=== PATIENT | male | born 1955 | race Caucasian/White ===

== ENCOUNTER 2022-12-26 13:40 | Inpatient (IN) | payer OTHER ==
[~2022-12-26] VITALS: Ht 170.2 cm; Wt 75.0 kg
[2022-12-26 14:52] LABS: BASOPHILS ABSOLUTE AUTO 0.08 K/mm3 (0.00-0.23); BASOPHILS PERCENT AUTO 1 % (0-2); EOSINOPHILS ABSOLUTE AUTO 0.07 K/mm3 (0.00-0.68); EOSINOPHILS PERCENT AUTO 1 % (0-6); Hematocrit 48.4 % (37.0-53.0); IMMATURE GRAN ABSOLUTE AUTO 0.03 K/mm3 (0.00-0.10); IMMATURE GRAN PERCENT AUTO 0 % (0-1); LYMPHOCYTES ABSOLUTE AUTO 2.02 K/mm3 (0.84-5.20); LYMPHOCYTES PERCENT AUTO 25 % (21-46); MONOCYTES PERCENT AUTO 13 % (4-13); Mean Corpuscular HGB 34.7 pg (26.0-34.0); Mean Corpuscular HGB Conc 35.1 g/dL (31.5-36.5); Mean Corpuscular Volume 99 fL (80-100); NEUTROPHILS ABSOLUTE AUTO 4.75 K/mm3 (1.96-9.15); NEUTROPHILS PERCENT AUTO 60 % (41-73); Platelet Count 245 K/mm3 (150-400); RDW Coefficient Variation 12.5 % (11.7-14.2); RDW Standard Deviation 45.7 fL (35.1-46.3); White Blood Cell Count 7.95 K/mm3 (4.00-11.30)
[2022-12-26 15:08] LABS: Thyroid Stimulating Hormone 1.25 uIU/mL (0.360-4.800)
[2022-12-26 15:09] LABS: Albumin/Globulin Ratio 0.6 (0.8-1.8); Bilirubin, Total 0.7 mg/dL (0.1-1.0); Bun/Creatinine Ratio 21.7 (12.0-20.0); Calcium, Blood 8.8 mg/dL (8.5-10.1); Creatinine, Blood 0.65 mg/dL (0.60-1.20); Globulin, Blood 5.1 g/dL (2.2-4.0); Potassium, Blood 4.2 mmol/L (3.5-5.5); Total Protein, Blood 8.1 g/dL (6.4-8.2)
[2022-12-26 15:11] LABS: International Normalized Ratio 1.1; Prothrombin Time Results 11.5 Sec (9.7-11.5)
[2022-12-26] MEDS ORDERED: LOSARTAN POTASS25 M2 PO (15:28)
[2022-12-26] MEDS ORDERED: VARENICLINE TART1 M2 PO (15:28)
[2022-12-26] MEDS ORDERED: METO50ER PO (15:29)
[2022-12-26] MEDS ORDERED: PLAVIX75 MG PO (15:30)
[2022-12-26] MEDS ORDERED: TRELEGY ELLIPT1 EACH INH (15:30)
[2022-12-26] MEDS ORDERED: NITR.4SL SL (15:31)
[2022-12-26] MEDS ORDERED: Aspir 8181 MG PO (15:31)
[2022-12-27 04:08] LABS: Albumin, Blood 2.6 g/dL (3.4-5.0); Albumin/Globulin Ratio 0.6 (0.8-1.8); Bilirubin, Total 0.6 mg/dL (0.1-1.0); Bun/Creatinine Ratio 23.6 (12.0-20.0); Calcium, Blood 8.2 mg/dL (8.5-10.1); Creatinine, Blood 0.76 mg/dL (0.60-1.20); Globulin, Blood 4.5 g/dL (2.2-4.0); Potassium, Blood 3.7 mmol/L (3.5-5.5); Total Protein, Blood 7.1 g/dL (6.4-8.2)
--- NOTE | 2022-12-27 05:56 | NUR ---
PT CARDIZEM GTT OFF SINCE 2299 FOR HYPOTENSION AND PAUSES UP TO 2 SECONDS AND RATES DIPPING INTO THE 40'S, AFIB RATE CONTROLLED IN 60'S AND 70'S, B/P RECOVERED QUICKLY AFTER CARDIZEM TURNED OFF, 1 BM, GOOD UO, NO CHEST PAIN OR SOB, PT UP INDEPENDENTLY TO BSC AND TO USE URINAL, WILL CONTINUE TO MONITOR UNTIL SHIFT CHANGE
--- NOTE | 2022-12-27 10:09 | NUR ---
AM NOTE: PATIENT ALERT AND ORIENTED X4. AT TIMES SEEMS A LITTLE FORGETFUL. PERRLA. DENIES NUMBNESS/TINGLING. ON ROOM AIR, LUNGS SOUNDING CLEAR. TELE SHOWING AFIB WITH HR 80-90'S AT REST AND UP TO 130'S WITH ACTIVITY. DENIES CHEST PAIN/PRESSURE/PALPITATIONS. BP STABLE. ECHO ORDERS IN PLACE. SPOKE WITH DR. BLANKENSHIP AND DR. SALDAÑA THIS AM. PATIENT RESTARTED ON HOME PO METOPROLOL. PLAN TO START A ANTICOAG. EATING WNL. DENIES ABDOMINAL PAIN/NAUSEA. VOIDING WNL. CALL LIGHT IN REACH. PATIENT STATE HE HAS LOST HIS CELLPHONE. MULTIPLE STAFF TO LOOK THROUGHOUT ROOM AND BELONGINGS WITH PATIENT PERMISSION. CALLS PLACED TO ED, SECURITY, AND MAINTANENCE. CALL LIGHT IN REACH.
--- NOTE | 2022-12-27 12:41 | NUR ---
ECHO COMPLETED AT THIS TIME
--- NOTE | 2022-12-27 13:34 | NUR ---
PATIENT UP FOR WALK AROUND UNIT WITH RN. TELE MONITOR NOTIFIED. HR UP TO 130'S WHEN WALKING. BACK IN BED RESTING AT THIS TIME AND HR 80-90'S. PATIENT DENIES CHEST PAIN/PALPITATION/PRESSURE WHEN UP WALKING. SOME SHORTNESS OF BREATH. DENIES DIZZINESS. WILL CONTINUE TO MONITOR.
--- NOTE | 2022-12-27 18:10 | NUR ---
SHIFT SUMMARY: PATIENT REMAINS STABLE. HR 80-90'S AT REST. WHEN UP TO BATHROOM OR WALKING AROUND 110-120'S. CONTINUES TO DENY CHEST PAIN/PRESSURE/PALPITATIONS. ON ROOM AIR. UP TO BATHROOM IND. WALKED AROUND NURSE STATION UNIT X2 THIS SHIFT. DENIES OVERALL PAIN. EATING DINNER AT THIS TIME. WILL CONTINUE TO MONITOR AND REPORT OFF TO ONCOMING RN.
--- NOTE | 2022-12-28 03:20 | NUR ---
NOTIFIED BY CORPORATE GIVING MANAGER THAT PT'S HR WAS AVERAGING 140'S, PT ASLEEP IN BED, B'P 108/85, 94% ON RA, DR GUZMAN NOTIFIED AND ORDERS FOR METOPROLOL 5MG IV X'S 1 RECIEVED, WHILE WAITING ON VERIFICATION FROM PHARMACY PT LISSA RN TO ROOM STATING, "IT'S HAPPENING AGAIN" C/O SOB AND IS SITTING UP IN BED DIAPHORETIC AND ANXIOUS, STATES "HEART IS RACING AND I HAVE A HEADACHE JUST LIKE AT HOME", PT GIVEN METOPROLOL, WILL CONTINUE TO MONITOR
--- NOTE | 2022-12-28 06:22 | NUR ---
PT AFIB 80'S-120'S, DILT GTT ON HOLD FOR NOW, CIWA PROTOCOL INITIATED, PT STATED HE DRINKS A SIX PACK OF BEER A DAY AND LAST DRINK WAS 4 DAYS AGO WHICH MAKES IT THE 25TH, CURRENT CIWA IS AN 8, REFUSES TYLENOL FOR MALIK AND CURRENTLY PT IS RESTLESS BUT LAYING IN BED, VSS
--- NOTE | 2022-12-28 10:18 | NUR ---
AM NOTE: PATIENT ALERT AND ORIENTED X4. NEURO WNL, AND AT PATIENT BASELINE. UP TO BATHROOM IND. ON ROOM AIR SATING ABOVE 95%. BREATHING TREATMENTS PER RESP. BP STABLE. NO TEMP. TELE SHOWING AFIB. HR 80-90'S AT REST. UP TO 130'S WHEN UP TALKING, WALKING, AND EATING. DOES NOT SUSTAIN IN 130'S. SEE TELE EVENTS. PO METOPROLOL GIVEN THIS AM WITH ADDITIONAL 25 MG METOPROLOL SUCCINATE PER DR. BLANKENSHIP. HR 70-100 AT THIS TIME, PATIENT SLEEPING. NO SIGNS OF EDEMA. DENIES PAIN. PLAN TO CONTINUE TO WATCH TELE AND UPDATE DR. BLANKENSHIP AND DR. CRAIN. CALL LIGHT IN REACH.
[2022-12-28] MEDS ORDERED: ELIQUIS5 M2 PO (11:54)
[2022-12-28] MEDS ORDERED: FOLI1 PO (11:54)
[2022-12-28] MEDS ORDERED: Ventolin/Prove6.7 GM INH (11:55)
[2022-12-28] MEDS ORDERED: B-1100 M1 PO (11:56)
--- NOTE | 2022-12-28 14:13 | NUR ---
DISCHARGE: NO ACUTE CHANGES, HR 80-90'S. PATIENT EDUCATED ON DISCHARGE INSTRUCTIONS, NEW MEDICATIONS, F/U APPOINTMENTS, AND TO SPORTS PHYSIOLOGIST MEDICATIONS FROM [facility]. VITAL SIGNS WNL. BROTHER IN TO PICK PATIENT UP. PATIENT LEFT UNIT VIA WHEELCHAIR WITH ALL PERSONAL BELONGINGS. IV REMOVED WNL.
== END 2022-12-28 13:28 | disposition home or self-care (01) | DRG 309 ==
LOC: ER 13:40 → PCU 20:15
PROVIDERS: Student in an Organized Health Care Education/Training Program; ADMIT Hospitalist
DX: I48.91 Unspecified atrial fibrillation (principal); E87.1 Hypo-osmolality and hyponatremia; J44.9 Chronic obstructive pulmonary disease, unspecified; I25.10 Atherosclerotic heart disease of native coronary artery without angina pectoris; R74.01 Elevation of levels of liver transaminase levels; I10 Essential (primary) hypertension; I73.9 Peripheral vascular disease, unspecified; F10.10 Alcohol abuse, uncomplicated; F17.210 Nicotine dependence, cigarettes, uncomplicated; I25.2 Old myocardial infarction; Z86.73 Personal history of transient ischemic attack (TIA), and cerebral infarction without residual deficits; Z95.5 Presence of coronary angioplasty implant and graft; Z96.652 Presence of left artificial knee joint; Z98.890 Other specified postprocedural states; Z95.828 Presence of other vascular implants and grafts; Z79.82 Long term (current) use of aspirin; Z79.899 Other long term (current) drug therapy; Z79.52 Long term (current) use of systemic steroids
CPT/HCPCS: 36415; 71045; 80053; 83735; 83880; 84443; 84484; 85025; 85610; 93005; 93010; 93306; 94640; 94664; 94760; 94762; 96365; 96376; 99285-25; A9270; J1650; J2270; J7040

== ENCOUNTER → 2023-01-21 | Outpatient (CLI) | payer OTHER ==
[~2023-01-21] MED LIST: Aspir 8181 MG PO; B-1100 M1 PO; ELIQUIS5 M2 PO; FOLI1 PO; LOSARTAN POTASS25 M2 PO; METO50ER PO; NITR.4SL SL; PLAVIX75 MG PO; TRELEGY ELLIPT1 EACH INH; VARENICLINE TART1 M2 PO; Ventolin/Prove6.7 GM INH
== END | disposition home or self-care (01) ==
LOC: PLD 12:37 → LAB SHORT 12:37
DX: H02.821 Cysts of right upper eyelid (principal)
CPT/HCPCS: 88304

== ENCOUNTER 2023-10-29 18:48 | Observation (INO) | payer OTHER ==
[~2023-10-29] VITALS: Ht 170.2 cm; Wt 73.8 kg
[2023-10-29] MEDS ORDERED: ATOR40TA PO (19:17)
[2023-10-29 19:21] LABS: BASOPHILS ABSOLUTE AUTO 0.07 K/mm3 (0.00-0.23); BASOPHILS PERCENT AUTO 1 % (0-2); EOSINOPHILS PERCENT AUTO 3 % (0-6); Hematocrit 43.2 % (37.0-53.0); IMMATURE GRAN ABSOLUTE AUTO 0.04 K/mm3 (0.00-0.10); IMMATURE GRAN PERCENT AUTO 0 % (0-1); LYMPHOCYTES ABSOLUTE AUTO 1.82 K/mm3 (0.84-5.20); LYMPHOCYTES PERCENT AUTO 18 % (21-46); MONOCYTES ABSOLUTE AUTO 1.22 K/mm3 (0.16-1.47); MONOCYTES PERCENT AUTO 12 % (4-13); Mean Corpuscular HGB 35.5 pg (26.0-34.0); Mean Corpuscular HGB Conc 34.7 g/dL (31.5-36.5); Mean Corpuscular Volume 102 fL (80-100); Mean Platelet Volume 9.7 fL (9.1-12.4); NEUTROPHILS ABSOLUTE AUTO 6.72 K/mm3 (1.96-9.15); NEUTROPHILS PERCENT AUTO 66 % (41-73); Platelet Count 239 K/mm3 (150-400); RDW Coefficient Variation 11.7 % (11.7-14.2); RDW Standard Deviation 44.1 fL (35.1-46.3); Red Blood Cell Count 4.23 M/mm3 (4.30-5.90); White Blood Cell Count 10.17 K/mm3 (4.00-11.30)
[2023-10-29 19:43] LABS: Albumin, Blood 2.5 g/dL (3.4-5.0); Albumin/Globulin Ratio 0.5 (0.8-1.8); Bilirubin, Total 0.5 mg/dL (0.1-1.0); Bun/Creatinine Ratio 21.5 (12.0-20.0); Calcium, Blood 8.6 mg/dL (8.5-10.1); Creatinine, Blood 0.61 mg/dL (0.60-1.20); Globulin, Blood 4.8 g/dL (2.2-4.0); Potassium, Blood 3.6 mmol/L (3.5-5.5); Total Protein, Blood 7.3 g/dL (6.4-8.2)
[2023-10-29 20:21] LABS: Source, Urine Voided
[2023-10-29 20:24] LABS: Appearance, Urine Hazy (Clear); Bilirubin, Urine Neg (Neg); Blood, Urine 1+ (Neg); Color, Urine Yellow (P-Yellow); Glucose Qualitative, Urine Neg (Neg); Ketones, Urine Neg (Neg); Leukocyte Esterase, Urine 2+ (Neg); Nitrite, Urine Neg (Neg); Protein, Urine Neg (Neg); Specific Gravity, Urine 1.015 (1.003-1.022); Urobilinogen, Urine 1+ (Normal)
[2023-10-29 20:51] LABS: Magnesium, Blood 1.8 mg/dL (1.6-2.4)
[2023-10-29 21:18] LABS: Bacteria Many /hpf; Red Blood Cells, Urine 0-2 /hpf (0-2); Squamous Epithelial Cells Not Seen /hpf (Few); White Blood Cells, Urine 25-50 /hpf (0-5)
[2023-10-29] MEDS ORDERED: CEFU500T30 PO (22:56)
[2023-10-30 00:31] VITALS: BP 103/71
[2023-10-30 00:58] LABS: BASOPHILS ABSOLUTE AUTO 0.09 K/mm3 (0.00-0.23); BASOPHILS PERCENT AUTO 1 % (0-2); EOSINOPHILS ABSOLUTE AUTO 0.31 K/mm3 (0.00-0.68); EOSINOPHILS PERCENT AUTO 3 % (0-6); Hematocrit 42.8 % (37.0-53.0); Hemoglobin 14.9 g/dL (13.5-17.5); IMMATURE GRAN ABSOLUTE AUTO 0.06 K/mm3 (0.00-0.10); IMMATURE GRAN PERCENT AUTO 1 % (0-1); LYMPHOCYTES PERCENT AUTO 24 % (21-46); MONOCYTES PERCENT AUTO 12 % (4-13); Mean Corpuscular HGB 35.1 pg (26.0-34.0); Mean Corpuscular HGB Conc 34.8 g/dL (31.5-36.5); Mean Corpuscular Volume 101 fL (80-100); Mean Platelet Volume 9.9 fL (9.1-12.4); NEUTROPHILS ABSOLUTE AUTO 5.69 K/mm3 (1.96-9.15); NEUTROPHILS PERCENT AUTO 60 % (41-73); Platelet Count 232 K/mm3 (150-400); RDW Coefficient Variation 11.8 % (11.7-14.2); RDW Standard Deviation 43.5 fL (35.1-46.3); Red Blood Cell Count 4.24 M/mm3 (4.30-5.90); White Blood Cell Count 9.55 K/mm3 (4.00-11.30)
[2023-10-30 01:27] LABS: Albumin, Blood 2.5 g/dL (3.4-5.0); Albumin/Globulin Ratio 0.5 (0.8-1.8); Bilirubin, Total 0.4 mg/dL (0.1-1.0); Bun/Creatinine Ratio 21.7 (12.0-20.0); Calcium, Blood 8.2 mg/dL (8.5-10.1); Creatinine, Blood 0.55 mg/dL (0.60-1.20); Globulin, Blood 4.7 g/dL (2.2-4.0); Potassium, Blood 4.4 mmol/L (3.5-5.5); Total Protein, Blood 7.2 g/dL (6.4-8.2)
--- NOTE | 2023-10-30 03:50 | NUR ---
LATE NOTE. PT ARRIVED ON UNIT AT 0030. AOX4, PLEASANT, COOPERATIVE WITH CARE. STEADY/STRONG GAIT. PT REPORTED MILD DIZZINESS UPON TRANSFER ON ARRIVAL. SBA TRANSFER FOR TIME BEING, EDUCATED CLINICAL DATA ASSOCIATE LIGHT USE TO WHICH PT HAS BEEN COOPERATIVE THUS FAR. SCDs IN PLACE. SATTING WELL ON ROOM AIR. PT DENIED ANY CHEST PAIN OR PRESSURE AT TIME OF ADMISSION ASSESSMENT. ADMISSION PROCESS COMPLETED PER PROTOCOL. EDUCATED ON FIRE SAFETY. PT HAS BEEN RESTING COMFORTABLY IN BED SINCE ARRIVAL. CALLS APPROPRIATELY. BED LOCKED IN LOWEST POSITION. CALL LIGHT LEFT WITHIN REACH.
[2023-10-30 04:24] VITALS: BP 100/63
--- NOTE | 2023-10-30 04:40 | NUR ---
SHIFT SUMMARY. SHIFT MOSTLY UNREMARKABLE SINCE PT ARRIVED ON UNIT. RESTING COMFORTABLY IN BED. TELE ON WITH NO EVENTS THUS FAR. AFIB RUNNING 50s-60s WHILE SLEEPING AND HR ESCALATES UP TO 100s WITH TRANSFER. CONTINUES TO DENY PAIN. SEIZURE PADS IN PLACE. SCDs IN PLACE. CALLS APPROPRIATELY FOR ASSISTANCE. FLUIDS INFUSING. BED LOCKED IN LOWEST POSITION. CALL LIGHT LEFT WITHINR EACH.
[2023-10-30 07:38] VITALS: BP 129/81
[2023-10-30 11:31] VITALS: BP 118/74
[2023-10-30] MEDS ORDERED: CEFU250T47 PO (12:47)
[2023-10-30] MEDS ORDERED: METO25ER PO (12:48)
--- NOTE | 2023-10-30 14:29 | NUR ---
DISCHARGE HOME PT A&O X4. VSS. SPO2 > 92% ON RA. MONITOR SHOWING AFIB, HR 60s-90s AT REST & HR BRIEFLY UP TO 120s W/ ACTIVITY, THEN RETURNS TO 60s-90s. PT REPORTING READINESS TO DISCHARGE HOME. w/ ORDER FOR PT DISCHARGE HOME. DISCHARGE INSTRUCTIONS REVIEWED W/ PT & SENT HOME W/ PT. PIV REMOVED. PT TAKEN OUT IN WHEELCHAIR W/ BELONGINGS @ APPROX 1420.
== END 2023-10-30 14:19 | disposition home or self-care (01) ==
LOC: ER 18:48 → PCU 18:49
PROVIDERS: Emergency Medicine; Family Medicine; Student in an Organized Health Care Education/Training Program; ADMIT Internal Medicine
DX: I48.91 Unspecified atrial fibrillation (principal); Z79.01 Long term (current) use of anticoagulants; N39.0 Urinary tract infection, site not specified; R07.9 Chest pain, unspecified; F10.10 Alcohol abuse, uncomplicated; I25.2 Old myocardial infarction; J44.9 Chronic obstructive pulmonary disease, unspecified; I10 Essential (primary) hypertension; Z86.73 Personal history of transient ischemic attack (TIA), and cerebral infarction without residual deficits; I73.9 Peripheral vascular disease, unspecified; E78.5 Hyperlipidemia, unspecified; F17.210 Nicotine dependence, cigarettes, uncomplicated
CPT/HCPCS: 36415; 80053; 81001; 82947; 83605; 83735; 84484; 85025; 87077; 87086; 87186; 93005; 93010; 96365; 96366; 96375; 96376; 99285-25; A9270; G0378; J0696; J3411; J3475; J7030

== ENCOUNTER 2024-05-12 18:04 | Emergency (ER) | payer OTHER ==
[~2024-05-12] VITALS: Ht 170.2 cm; Wt 69.4 kg
[~2024-05-12 18:04] MED LIST changes: +ATOR40TA PO; +CEFU250T47 PO; +CEFU500T30 PO; +METO25ER PO; +Percocet 5-3251 EACH PO
[2024-05-12 18:11] VITALS: BP 137/93
[2024-05-12] MEDS ORDERED: Ketorolac Tromethamine 30mg Vial IV ONE (18:25)
[2024-05-12] MEDS ORDERED: OxyCODONE 10/Acetamin 325 TABLET PO ONE (18:25)
== END 2024-05-12 18:51 | disposition home or self-care (01) ==
LOC: ER 18:04
DX: R10.9 Unspecified abdominal pain (principal); C25.9 Malignant neoplasm of pancreas, unspecified; Z79.899 Other long term (current) drug therapy; I10 Essential (primary) hypertension; I48.91 Unspecified atrial fibrillation; J44.9 Chronic obstructive pulmonary disease, unspecified; E78.5 Hyperlipidemia, unspecified; F17.210 Nicotine dependence, cigarettes, uncomplicated
CPT/HCPCS: 96374-59; 99284-25; A9270; J1885